=== PATIENT | female | born 1975 | race Asian ===

== ENCOUNTER 2018-06-03 08:17 | Emergency (ER) | payer SELFPAY | END 2018-06-03 12:35 | disposition home or self-care (01) | LOC: ERS 08:17 | DX: S00.03XA Contusion of scalp, initial encounter (principal); W22.8XXA Striking against or struck by other objects, initial encounter | CPT/HCPCS: 99283 ==

== ENCOUNTER 2018-11-02 15:31 | Outpatient (CLI) | payer BC, OTHER ==
--- NOTE | 2018-11-02 16:09 | MMO ---
Bilateral MAMMO Bilat Screen [facility]. CLINICAL HISTORY: Patient is 43 years old and is seen for screening. The patient has no family history of breast cancer. The patient has no personal history of cancer. VIEWS: The views performed were: bilateral craniocaudal with tomosynthesis and bilateral mediolateral oblique with tomosynthesis. MAMMOGRAM FINDINGS: There are scattered fibroglandular densities. There are no suspicious masses, suspicious calcifications, or new areas of architectural distortion. IMPRESSION: THERE IS NO MAMMOGRAPHIC EVIDENCE OF MALIGNANCY. A ROUTINE FOLLOW-UP MAMMOGRAM IN 1 YEAR IS RECOMMENDED. THE RESULTS OF THIS EXAM WERE SENT TO THE PATIENT. ACR BI-RADS Category 1 - Negative MAMMOGRAPHY NOTE: 1. A negative mammogram report should not delay a biopsy if a dominant of clinically suspicious mass is present. 2. Approximately 10% to 15% of breast cancers are not detected by mammography. 3. Adenosis and dense breasts may obscure an underlying neoplasm.
== END 2018-11-02 15:32 | disposition home or self-care (01) ==
LOC: BICMAMMO 15:31
PROVIDERS: ATTEND Family Medicine
DX: Z12.31 Encounter for screening mammogram for malignant neoplasm of breast (principal)
CPT/HCPCS: 77063; 77067

== ENCOUNTER 2023-01-06 07:38 | Outpatient (CLI) | payer OTHER | END 2023-01-06 07:39 | disposition home or self-care (01) | LOC: BICMAMMO 07:38 | PROVIDERS: ATTEND Family Medicine | DX: Z12.31 Encounter for screening mammogram for malignant neoplasm of breast (principal) | CPT/HCPCS: 77063; 77067 ==

== ENCOUNTER 2024-08-16 09:11 | Outpatient (CLI) | payer OTHER | END 2024-08-16 09:12 | disposition home or self-care (01) | LOC: BICRAD 09:11 | PROVIDERS: ATTEND Family Medicine | DX: M79.672 Pain in left foot (principal) ==